=== PATIENT | male | born 1985 | race African-American/Black ===

== ENCOUNTER 2019-02-22 10:41 | Emergency (ER) | payer MEDICAID ==
[~2019-02-22] VITALS: Ht 175.3 cm; Wt 73.0 kg
[2019-02-22 11:21] VITALS: BP 151/91
[2019-02-22] MEDS ORDERED: KETOROLAC 60MG/2ML VIAL IM ONE (11:30)
== END 2019-02-22 11:50 | disposition home or self-care (01) ==
LOC: ER 10:50
DX: K04.7 Periapical abscess without sinus (principal); F17.210 Nicotine dependence, cigarettes, uncomplicated; Z71.6 Tobacco abuse counseling
CPT/HCPCS: 96372; 99283; 99406; J1885; Z7610

== ENCOUNTER 2023-09-10 12:34 | Emergency (ER) | payer MEDICAID, OTHER ==
[~2023-09-10] VITALS: Ht 175.3 cm; Wt 75.0 kg
[2023-09-10 13:04] VITALS: BP 118/79; PULSE 102; RESP 16; TEMP 98; O2SAT 96
== END 2023-09-10 17:51 | disposition home or self-care (01) ==
LOC: ER 12:34
DX: R10.9 Unspecified abdominal pain (principal)
CPT/HCPCS: 74176; 99284